=== PATIENT | female | born 1955 | race Caucasian/White ===

== ENCOUNTER 2017-07-12 13:10 | Inpatient (IN) | payer OTHER ==
[~2017-07-12] VITALS: Ht 177.8 cm; Wt 133.5 kg
--- NOTE | ~2017-07-12 | EKG ---
[place] [address] [facility] [place] [address] ELECTROCARDIOGRAM REPORT Name: CHLOÉ ADAME Room #: 431-P ADM IN M.R.#: [id number] Admission: 07/12/17 Attend Phys: Cassandra Braun MD Discharge: Date of : 55 Report #: [id number] THIS REPORT FOR: //name// [facility] Test Date: 2017-07-13 Test Time: 08:09:28 Pat Name: CHLOÉ ADAME Department: Room: 431 P Gender: F Software Security Consultant: emmanuel : 1955 Requested By: Joel Harmon Order Number: [id number] MD: Malik Sagastume Measurements Intervals Stephens Rate: 73 P: 30 MA: 162 QRS: 4 QRSD: 88 T: 25 QT: 411 QTc: 453 Interpretive Statements Sinus rhythm Low voltage, precordial leads Abnormal inferior Q waves No previous ECG available for comparison Electronically Signed On 07-13-2017 8:41:04 CDT by Malik Sagastume [email or web address] <ELECTRONICALLY SIGNED> By: Malik Sagastume MD, [facility] 07/13/17 0841 D: [id number] 8 Malik Sagastume MD, [facility] /EPI
--- NOTE | ~2017-07-12 | HC ---
[facility] [place] [address] CONSULTATION Name: CHLOÉ ADAME Room #: 431-P ADM IN M.R.#: [id number] Admission: 07/12/17 Attend Phys: Cassandra Braun MD Discharge: Date of : 55 Report #: [id number] THIS REPORT FOR: //name// CC: Cassandra Braun DATE OF SERVICE: 07/12/2017 INFECTIOUS DISEASE CONSULTATION: REASON FOR CONSULTATION: I was asked to evaluate concerning diabetic right upper thigh abscess. HISTORY OF PRESENT ILLNESS: The patient is a 61-year-old diabetic. Approximately, 2 weeks ago developed increased swelling and tenderness in her right upper thigh medially, presented to the outpatient clinic of Dr. Braun 2 days ago where she had incision and drainage procedure done. Large amount of drainage was collected. She was treated with ceftriaxone, Bactrim and strip gauze packing. She returned today, not feeling any better with persistent nausea and increased pain. Fever and chills has subsided. Blood sugar control has been poor with sugars above 200. She has not been checking in the last several days. No prior history of injury or other instrumentation to the groin region. ALLERGIES: None known. MEDICATIONS: Atorvastatin, pioglitazone, lisinopril, levothyroxine, spironolactone, insulin, metformin, vancomycin. PAST MEDICAL HISTORY: Diabetes, chronic kidney disease, endometrial cancer, hyperlipidemia, hypertension, hypothyroidism, obesity, polycystic ovary disease, several bony fractures, appendectomy, cholecystectomy, TAHBSO for endometrial cancer. FAMILY HISTORY: Noncontributory. SOCIAL HISTORY: Past smoker, no significant alcohol intake. Works in customer service. No animal exposure. No travel. REVIEW OF SYSTEMS: No cardiopulmonary or complaints. She has had nausea without diarrhea. No abdominal pain. PHYSICAL EXAMINATION: VITAL SIGNS: Afebrile and hemodynamically stable. GENERAL: Alert and cooperative. Moderately obese. HEENT: Unremarkable. Several acneform lesions. NECK: Supple. [facility] [address] [place] [address] CONSULTATION Name: CHLOÉ ADAME Room #: [address] [place] [address] [facility].#: [id number] Admission: 07/12/17 Attend Phys: Cassandra Braun MD Discharge: Date of : 55 Report #: [id number] LUNGS: Clear. HEART: Regular, without murmur. ABDOMEN: Obese, soft, nontender, no hepatosplenomegaly or mass. EXTREMITIES: Right upper thigh soft tissue infection with induration approximately 8 cm x 3 cm. There was an incision and drainage with packing and some bloody serous discharge. Moderate tenderness in this region. Adenopathy in the right groin noted. NEUROLOGIC: Nonfocal. LABORATORY STUDIES: Sodium 135, potassium 4.4, bicarbonate 27, creatinine 1. Liver function test normal. Hemoglobin 13, WBC 8.2, platelet count 326,000. IMPRESSION: A 61-year-old diabetic with right thigh soft tissue infection and abscess. Suspect polymicrobial infection. RECOMMENDATION: We will obtain outside tissue culture results and repeat cultures here. General Surgery consultation for further incision and drainage. This will allow better packing of the area. We will continue with IV antibiotic therapy to cover for potential MRSA in addition to mixed bacterial isi. Control blood glucose levels. <ELECTRONICALLY SIGNED> By: Jose Montes MD 07/13/17 1036 2053 0302 Jose Montes MD /nt
--- NOTE | ~2017-07-12 | H ---
[facility] [place] [address] HISTORY AND PHYSICAL Name: CHLOÉ ADAME Room #: 431-P ADM IN M.R.#: [id number] Admission: 07/12/17 Attend Phys: Cassandra Braun MD Discharge: Date of : 55 Report #: [id number] THIS REPORT FOR: //name// CC: Cassandra Braun DATE OF SERVICE: 07/12/2017 HISTORY OF PRESENT ILLNESS: The patient is a 61-year-old diabetic white female who presented to my office 2 days ago with an abscess on her right thigh. She was very nauseated, had been having some dry heaves, had not known that she has had a fever. I and D were done in the office with a large amount of foul purulent material removed and packing was done. She was given an injection of ceftriaxone and started on Bactrim, with a followup today. She also had the area outlined with a marker to be able to assess. She follows up in the office today, really not feeling any better, still feeling quite weak and nauseated and still having a lot of pain. PAST MEDICAL HISTORY: Significant for uncontrolled type 2 diabetes with chronic kidney disease, endometrial cancer. Hyperlipidemia, mixed. Hypertension, hypothyroidism, morbid obesity, polycystic ovarian disease. She has had several fractures, wrist fracture as a child, a clavicle fracture as a child, a right distal fibula fracture in 2010. SURGICAL HISTORY: Includes an appendectomy that was done incidentally at the time of a cholecystectomy in 1971. She had hysteroscopy with D and C in 2006, at which time was diagnosed with endometrial cancer, and she subsequently had a MATIAS and BSO for the endometrial cancer. She has had no pregnancies. FAMILY HISTORY: Her father had COPD, peripheral vascular disease and coronary artery disease, and he at 83 of sudden . Her mother is living in her 90s. She has a history of valvular stenosis and coronary artery disease as well as a goiter. Maternal grandmother had colon cancer and diabetes. She at 96. Maternal grandfather of lung cancer in his 50s. Paternal grandfather of COPD and paternal grandmother had osteoporosis and she of a pulmonary embolism at age 86. SOCIAL HISTORY: She is to Evelyn. 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 She is a former social smoker, quit in 2006. Alcohol use, none. Drug use none. Exercise, none. PHYSICAL EXAMINATION: GENERAL: She is a morbidly obese white female, mildly ill appearing. VITAL SIGNS: Her height is 70 inches, weight 288 pounds, BMI 41.5, pulse is 72, blood pressure 114/62. HEENT: Normocephalic, atraumatic. [facility] [address] [place] [address] HISTORY AND PHYSICAL Name: CHLOÉ ADAME Room #: 431-P ADM IN M.R.#: [id number] Admission: 07/12/17 Attend Phys: Cassandra Braun MD Discharge: Date of : 55 Report #: [id number] LUNGS: Clear to auscultation. HEART: Regular rate and rhythm without murmur. EXTREMITIES AND SKIN: Exam is significant for right medial thigh with erythema and induration, very tender with erythema stretching beyond the previously outlined area of erythema. The wound opening was checked and the packing was removed and repacked without further purulent material returning. IMPRESSION: 1. Abscess and deteriorated right thigh failed outpatient treatment. We are going to admit her for IV vancomycin. 2. She has uncontrolled type 2 diabetes. She has been on insulin Lantus at bedtime only and so we are going to add mealtime insulin as well as the poorly controlled diabetes is not helping her situation year. 3. Hypertension that is well controlled on present management. We will continue the same/ 4. Her dyslipidemia is controlled on atorvastatin. We will continue that. 5. Hypothyroidism, has been in the range of 175 of levothyroxine. We will continue the same. <ELECTRONICALLY SIGNED> By: Cassandra Braun MD 07/13/17 0747 1345 1418 Cassandra Braun MD /nt
--- NOTE | ~2017-07-12 | HC ---
[facility] [place] [address] CONSULTATION Name: CHLOÉ ADAME Room #: 411-P ADM IN M.R.#: [id number] Admission: 07/12/17 Attend Phys: Cassandra Braun MD Discharge: Date of : 55 Report #: [id number] THIS REPORT FOR: //name// CC: Cassandra Braun DATE OF SERVICE: 07/14/2017 WOUND CARE CONSULTATION PERSONAL PHYSICIAN: Cassandra Braun MD CHIEF COMPLAINT: Right medial thigh surgical wound, status post I and D of an abscess. HISTORY OF PRESENT ILLNESS: This is a 61-year-old white female with a history of longstanding uncontrolled diabetes type 2, who presented to Dr. Braun' office earlier in the week for an abscess on her right inner thigh. The patient stated it started approximately 3-4 days prior to her presentation. I and D was performed in the office according to their notes with a significant amount of purulent drainage. Packing was performed at that time. At that time she was given an intramuscular injection of antibiotic as well as started on oral antibiotics. On 2-day followup, the patient was not feeling any better and supposedly was very weak and nauseated and having persistent pain in the right medial thigh. The patient at time was felt it would be better to be hospitalized, started on IV antibiotics and have a further I and D by the surgeons. We have been asked to follow the patient now that the I and D has been performed for further aggressive outpatient wound care. PAST MEDICAL HISTORY: Significant for uncontrolled diabetes, history of endometrial cancer, hyperlipidemia, hypertension, morbid obesity, polycystic ovarian disease. PAST SURGICAL HISTORY: The patient had a hysteroscopy with D and C in 2006, had abdominal hysterectomy after diagnosis of endometrial carcinoma. CURRENT MEDICATIONS: Multiple, I reviewed the patient's medication list. DRUG ALLERGIES: None. SOCIAL HISTORY: The patient has a remote history of smoking, quit in 2006. The patient does not drink alcohol. FAMILY HISTORY: Not pertinent to current medical condition. REVIEW OF SYSTEMS: CONSTITUTIONAL: The patient had low-grade fever and associated chills as an [facility] [address] [place] [address] CONSULTATION Name: CHLOÉ ADAME Room #: 411-P [facility] IN M.R.#: [id number] Admission: 07/12/17 Attend Phys: Cassandra Braun MD Discharge: Date of : 55 Report #: [id number] outpatient. NEUROLOGIC: The patient has overall generalized weakness, but no isolated weakness in arms or legs. EYES: No complaints. ENT: No complaints. CARDIAC: The patient denies any chest pain, palpitations or peripheral edema. RESPIRATORY: The patient denies shortness breath, cough or wheezes. GASTROINTESTINAL: The patient had nausea associated as an outpatient, but is now resolved. No vomiting or abdominal pain. GENITOURINARY: The patient denies urgency or frequency. MUSCULOSKELETAL: No complaints. SKIN: There is a surgical wound of the right medial thigh. PHYSICAL EXAMINATION: VITAL SIGNS: Temperature 37.1, pulse 79, respirations 16, BP 135/53. GENERAL: This is alert and oriented x 3, pleasant, obese white female who is in [id number] distress and having the pain. HEENT: Normocephalic, atraumatic. Mucous membranes are slightly dry. Pupils are round. Sclerae white. NECK: Supple, nontender. LUNGS: Clear. HEART: Regular, without murmur. ABDOMEN: Soft, obese, nontender. EXTREMITIES: Evaluation of the right medial thigh reveals a surgical wound, which is approximately 15 cm in length, which is otherwise clean with healthy adipose tissue and granulation tissue. There are no signs of any further purulence. It is tender to palpation. There is an area of erythema surrounding the surgical wound, which is also warm and tender, but not fluctuant. Exam is slightly limited secondary to the persistent pain. Distal neurovascular is otherwise intact in her extremities. NEUROLOGIC: Cranial nerves 2-12 grossly intact. Motor and sensory grossly intact. LABORATORY VALUES: White count 9.2, hemoglobin 13.0. Albumin is 2.6. WOUND CARE COURSE: I spoke with the patient and as well as reviewed the operative report. The patient had operative I and D by Dr. Azam Rogel. The patient now hopefully at some point in time as an outpatient we possible can get the patient set up with a wound VAC; however, at this point in time, the patient is too tender to try to attempt this. I have select the patient about home health nursing, she is agreeable to that versus possible skilled facility depending on how the patient is feeling at the time of discharge. We will start the patient on morphine, Silvadene compound while she is here in the hospital, have this gently packed within the wound and covered with an ABD. This need to be changed twice daily. I wrote a prescription for the patient to be filled for at home discharge of the morphine, Silvadene compound. We will make sure we [facility] [address] [place] [address] CONSULTATION Name: CHLOÉ ADAME Room #: 411-P ADM IN M.R.#: [id number] Admission: 07/12/17 Attend Phys: Cassandra Braun MD Discharge: Date of : 55 Report #: [id number] maximize the patient's oral protein supplementation for her protein-calorie malnutrition. Make sure we maximize and follow the patient's diabetes control to assist in nutritional control of her wound healing. IMPRESSION: 1. Surgical wound to the right medial thigh with exposure of subcutaneous tissue. 2. History of right medial thigh abscess, now status post incision and drainage. 3. Uncontrolled type 2 diabetes. 4. Protein-calorie malnutrition with an albumin of 2.6. 5. Generalized debility secondary to pain. PLAN: Described in length as above. If the patient is discharged this weekend, I will have her follow up in my clinic within the next week for further followup. If the patient does go home with outpatient home health nursing, we will guide the wound care dressing changes. I have answered the patient and her 's questions and we will continue to follow the patient. <ELECTRONICALLY SIGNED> By: John aMrie MD 07/17/17 1252 1401 2135 John Marie MD /nt
[~2017-07-12 13:10] MED LIST: ACTOS 30 MG TAB30 MG; ALDACTONE50 MG; GLUCOPHAGE850 MG; HIGH CHOLESTEROL MED; LISINOPRIL20 MG; NORCO 5-325 TA1 EACH PO; SYNTHROID175 MCG
[2017-07-12 17:06] LABS: HEMATOCRIT 38.9 % (37.0-47.0); MCH 30.9 pg (26.0-34.0); MCHC 33.3 g/dL (28.0-37.0); MCV 92.7 fL (80.0-100.0); RBC 4.2 mil/uL (4.20-5.00); RDW 13.6 % (10.5-14.5); WBC 8.2 thou/uL (4.0-11.0)
[2017-07-12 17:17] LABS: ALBUMIN 2.6 g/dL (3.4-5.0); CALCIUM 9.6 mg/dL (8.5-10.1); POTASSIUM 4.4 mmol/L (3.5-5.1); TOTAL BILIRUBIN 0.3 mg/dL (<0.1-1.0); TOTAL PROTEIN 7.5 g/dL (6.4-8.2)
[2017-07-12 22:00] VITALS: BP 128/64
[2017-07-13 05:34] VITALS: BP 135/54
[2017-07-13 19:48] VITALS: BP 134/58
[2017-07-14 05:24] VITALS: BP 135/53
[2017-07-14 20:00] VITALS: BP 133/70
[2017-07-15 04:30] VITALS: BP 145/54
[2017-07-15 07:25] VITALS: BP 140/60
[2017-07-15 16:40] VITALS: BP 114/83
[2017-07-15 20:55] VITALS: BP 115/37
[2017-07-16 04:58] VITALS: BP 134/56
[2017-07-16 08:00] VITALS: BP 139/63
[2017-07-16 20:51] VITALS: BP 129/45
[2017-07-17 04:37] VITALS: BP 131/58
[2017-07-17] MEDS ORDERED: ATORVASTATIN CA40 MG PO (07:21)
[2017-07-17] MEDS ORDERED: LANTUS100 UNIT/M SUBQ (07:23)
[2017-07-17] MEDS ORDERED: NOVOLOG100 UNIT/1 SUBQ (07:24)
[2017-07-17] MEDS ORDERED: AUGMENTIN 875-1 EACH PO (07:25)
[2017-07-17 07:30] VITALS: BP 138/58
[2017-07-17 10:13] VITALS: BP 138/58
== END 2017-07-17 15:08 | disposition home health service (06) | DRG 580 ==
LOC: 4E 13:10 → 4N 07-16 20:42 → ENTRNSPT 07-17 14:39 → EDTRNSPTSTS 07-17 14:59 → 4N 07-17 15:08
PROVIDERS: Family Medicine
PROC: 0KBS0ZZ Excision of Right Lower Leg Muscle, Open Approach (ICD-10-PCS; principal; 2017-07-13)
DX: L02.415 Cutaneous abscess of right lower limb (principal); Z68.41 Body mass index [BMI] 40.0-44.9, adult; E44.1 Mild protein-calorie malnutrition; E11.22 Type 2 diabetes mellitus with diabetic chronic kidney disease; I10 Essential (primary) hypertension; E03.9 Hypothyroidism, unspecified; E78.2 Mixed hyperlipidemia; E11.65 Type 2 diabetes mellitus with hyperglycemia; E66.01 Morbid (severe) obesity due to excess calories; L03.115 Cellulitis of right lower limb; Z90.49 Acquired absence of other specified parts of digestive tract; Z87.81 Personal history of (healed) traumatic fracture; Z85.42 Personal history of malignant neoplasm of other parts of uterus; Z87.891 Personal history of nicotine dependence; Z90.710 Acquired absence of both cervix and uterus; Z83.6 Family history of other diseases of the respiratory system; Z82.0 Family history of epilepsy and other diseases of the nervous system; Z80.1 Family history of malignant neoplasm of trachea, bronchus and lung; Z82.62 Family history of osteoporosis; Z82.49 Family history of ischemic heart disease and other diseases of the circulatory system
CPT/HCPCS: 10783; 10790; 50010; 50101; 50386; 50417; 62110; 62900; 70005

== ENCOUNTER → 2017-07-21 | Outpatient (CLI) | payer OTHER ==
[~2017-07-21] MED LIST changes: +ATORVASTATIN CA40 MG PO; +AUGMENTIN 875-1 EACH PO; +LANTUS100 UNIT/M SUBQ; +NOVOLOG100 UNIT/1 SUBQ
== END ==
LOC: HYPER 08:04
DX: T81.89XA Other complications of procedures, not elsewhere classified, initial encounter (principal); E11.65 Type 2 diabetes mellitus with hyperglycemia; E11.22 Type 2 diabetes mellitus with diabetic chronic kidney disease; I12.9 Hypertensive chronic kidney disease with stage 1 through stage 4 chronic kidney disease, or unspecified chronic kidney disease; N18.9 Chronic kidney disease, unspecified; E78.5 Hyperlipidemia, unspecified; E11.36 Type 2 diabetes mellitus with diabetic cataract; L02.818 Cutaneous abscess of other sites; E66.01 Morbid (severe) obesity due to excess calories; Z68.41 Body mass index [BMI] 40.0-44.9, adult; Z85.41 Personal history of malignant neoplasm of cervix uteri; Z87.891 Personal history of nicotine dependence; Y92.89 Other specified places as the place of occurrence of the external cause; Y83.8 Other surgical procedures as the cause of abnormal reaction of the patient, or of later complication, without mention of misadventure at the time of the procedure